=== PATIENT | male | born 1955 | race Caucasian/White ===

== ENCOUNTER 2022-08-28 09:15 | Emergency (ER) | payer MEDICARE, SELFPAY ==
--- NOTE | ~2022-08-28 | XR_ITS ---
XR chest 2V DATE: 08/28/2022 10:06 INDICATION: Cough for one week. Shortness of breath. TECHNIQUE: 2 views COMPARISON: None FINDINGS: Right Port-A-Cath catheter tip overlies the superior vena cava. Heart size is normal. Aortic arch calcification, minimal aortic unfolding. The lungs are mildly hyperinflated but clear of infiltrate or consolidation. No pulmonary infiltrate or consolidation, pleural effusion or pulmonary vascular congestion or pneumothorax. Diffuse osteopenia. Levoscoliosis of the upper thoracic spine. IMPRESSION: Moderate hyperinflation; no active cardiopulmonary disease Aortic atherosclerosis Right Port-A-Cath Reviewed, dictated and finalized at location B.
--- NOTE | 2022-08-28 09:19 | ED.URI ---
HPI - URI/Sore Throat General Chief Complaint: Upper Respiratory Infection Stated Complaint: Sore Throat/Cough Time Seen by Provider: 08/28/22 09:19 Source: patient and RN notes reviewed History of Present Illness HPI Narrative: Patient is a 67-year-old male who presents to Urgent Care with his spouse with complaints of a cough and sore throat. Patient states he has had a cough for approximately 1 week and now his throat hurts so bad it is difficult to swallow. Patient had chemotherapy because he ?did have a fever?. Patient is on chemo for history of colon cancer and liver cancer. Patient denies any fevers, nausea, vomiting, shortness of breath or chest discomfort. States he has been taking DayQuil and NyQuil. No other acute complaints. No acute distress noted. Patient aware of the plan of care. Some parts of this dictation were generated by voice recognition software and may contain typographical and/or grammatical inaccuracies. Related Data Allergies Allergy/AdvReac Type Severity Reaction Status Date / Time No Known Allergies Allergy Verified 08/28/22 09:43 Review of Systems Review of Systems: CONSTITUTIONAL: Denies fever, chills, or sweats. EYES: Denies visual changes, redness, or discharge. ENT: Denies rhinorrhea, congestion, otalgia. Reports of sore throat CARDIOVASCULAR: Denies chest pain, palpitations, or edema. RESPIRATORY: Reports of cough without dyspnea GASTROINTESTINAL: Denies abdominal pain, nausea, vomiting, or diarrhea. GENITOURINARY: Denies dysuria or hematuria. SKIN: Denies rash or itching. MUSCULOSKELETAL: Denies back pain, joint pain, or myalgia. NEUROLOGIC: Denies headache, numbness, or weakness. All other systems reviewed are negative, except as documented in HPI. PMFSH Comments At the time of my signature, I reviewed and agree with the nursing past medical, surgical, social, and family history. There is no relevant family history pertinent to the patient complaint. Exam Narrative: GENERAL: This is a well-nourished, well-developed patient, in no apparent distress. HEAD: normocephalic, atraumatic. EYES: PERRL. Sclera clear/white. Vision is grossly intact. EARS: External ears normal, auditory canals clear and without drainage, TMs normal without perforation. Hearing grossly intact. NOSE: External nose normal with no obvious nasal discharge, nares without redness, clear rhinorrhea. THROAT: Mucous membranes moist, moderate erythema to posterior pharynx with moderate postnasal drainage NECK: Neck supple, non-tender without lymphadenopathy RESPIRATORY: Clear to auscultation. Breath sounds equal bilaterally. No wheezes, rales, or rhonchi. SKIN: Appears jaundice. Warm, intact with no suspicious lesions or rash, good texture and turgor. NEURO: awake, alert, and oriented to person, place and time. There were no obvious focal neurologic abnormalities. EXTREMITIES: No clubbing, cyanosis, or edema. Course Course Level of Care: Express Care Visit Vital Signs Vital signs: Vital Signs Temperature 97.7 F 08/28/22 09:32 Pulse Rate 104 H 08/28/22 09:32 Respiratory Rate 20 08/28/22 09:32 Blood Pressure 101/70 08/28/22 09:32 Pulse Oximetry 98 08/28/22 09:32 Oxygen Delivery Room Air 08/28/22 09:32 Temperature 97.7 F 08/28/22 09:32 Pulse Rate 104 H 08/28/22 09:32 Respiratory Rate 20 08/28/22 09:32 Blood Pressure 101/70 08/28/22 09:32 Pulse Oximetry 98 08/28/22 09:32 Oxygen Delivery Room Air 08/28/22 09:32 Reviewed MDM - URI/Sore Throat MDM Narrative Medical decision making narrative: Reviewed lab results with the patient. He is aware that strep swab was negative. Educated patient on culture we will call within 72 hours if culture is positive antibiotics are necessary. Use the lidocaine viscous as needed for sore throat. Chest x-ray was also negative for any acute abnormality or pneumonia. Advised patient to follow-up with his oncologist and his primary care doct
[2022-08-28 09:32] VITALS: BP 101/70; PULSE 104; RESP 20; TEMP 36.5; O2SAT 98
== END 2022-08-28 10:22 | disposition home or self-care (01) ==
PROVIDERS: Emergency Provider Nurse Practitioner Family
DX: J02.9 Acute pharyngitis, unspecified (principal); C18.9 Malignant neoplasm of colon, unspecified; C22.8 Malignant neoplasm of liver, primary, unspecified as to type
CPT/HCPCS: 71046; 87081; 87880; 99213; G0463